=== PATIENT | female | born 1975 | race Caucasian/White ===

== ENCOUNTER 2018-02-19 11:20 | Outpatient (REF) | payer BC, SELFPAY ==
[2018-02-19 13:31] LABS: Bilirubin Negative (Negative); Blood Small (Negative); Clarity Clear; Glucose Negative (Negative); Ketones Negative (Negative); Leukocyte Esterase Negative (Negative); Nitrite Negative (Negative); Urobilinogen 0.2 EU/dL (Up TO 0.2)
[2018-02-19 13:48] LABS: Bacteria Moderate HPF (Negative); C & S Indicated? C&S Done As Ordered; Casts Negative LPF (Negative); Crystals Negative HPF (Negative); Epithelial Cells Few HPF (Negative); Mucus Moderate (Negative); RBC 0-2 (0-2); WBC 0-2 HPF (0-5)
== END 2018-02-19 11:21 ==
LOC: LBN 11:20
PROVIDERS: PCP Nurse Practitioner Family; Visit Provider Obstetrics & Gynecology
DX: R31.0 Gross hematuria (principal)
CPT/HCPCS: 81003; 81015; 87086

== ENCOUNTER 2018-03-07 02:56 | Outpatient (CLI) | payer BC, SELFPAY ==
--- NOTE | 2018-03-07 15:13 | DI.REPORT_ITS ---
SYMPTOMS/DIAGNOSIS: MICROSCOPIC HEMATURIA, R31.29, RLQ ABD PAIN, R10.31 RENAL ULTRASOUND: The kidneys are normal in size and shape and there is no evidence of a renal mass, hydronephrosis or nephrolithiasis. Pre and post void urinary bladder volume measurements are 254 cc's and 0 cc's respectively. The bladder appears intact. CONCLUSION: Negative renal ultrasound.
== END 2018-03-07 02:57 ==
PROVIDERS: PCP Nurse Practitioner Family; Visit Provider Obstetrics & Gynecology
DX: R10.31 Right lower quadrant pain (principal); R31.29 Other microscopic hematuria
CPT/HCPCS: 76770

== ENCOUNTER 2020-02-01 00:20 | Emergency (ER) | payer BC, SELFPAY ==
[2020-02-01 00:25] VITALS: BP 114/76; PULSE 120; RESP 30; TEMP 36.2; O2SAT 99
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
--- NOTE | 2020-02-01 00:58 | NUR.NOTE ---
Nursing Note: sent copy of referal to wound care to cm to make appt
[2020-02-01] MEDS: Silver sulfaDIAZINE 1% 25 GM TUBE TP (01:01)
[2020-02-01 01:09] VITALS: BP 114/76; TEMP 36.2; O2SAT 99
--- NOTE | 2020-02-01 09:33 | CMPROGNOTE_ITS ---
- If Service Date Differs Date of service: 02/01/20 Time of Service: 09:33 Care Management Progress Note At the request of ED provider, BUSHRA coordinates referral to [facility] (fax [phone]). BUSHRA also contacts Ana Maria to provide her with contact information for the [facility] (tel. [phone]) and to advise her a referral was made and to expect a call from them.
--- NOTE | 2020-02-01 09:33 | PDOC.ERCMPRO ---
- If Service Date Differs Date of service: 02/01/20 Time of Service: 09:33 Care Management Progress Note At the request of ED provider, BUSHRA coordinates referral to [facility] (fax [phone]). BUSHRA also contacts Ana Maria to provide her with contact information for the [facility] (tel. [phone]) and to advise her a referral was made and to expect a call from them.
== END 2020-02-01 01:20 | disposition home or self-care (01) ==
PROVIDERS: Emergency Provider Student in an Organized Health Care Education/Training Program; PCP Nurse Practitioner Family
DX: T22.212A Burn of second degree of left forearm, initial encounter (principal); T24.212A Burn of second degree of left thigh, initial encounter; X03.8XXA Other exposure to controlled fire, not in building or structure, initial encounter
CPT/HCPCS: 16020

== ENCOUNTER 2020-12-14 18:17 | Emergency (ER) | payer BC, SELFPAY ==
[2020-12-14 18:32] VITALS: BP 124/70; PULSE 86; RESP 20; TEMP 36.8; O2SAT 97
--- NOTE | 2020-12-14 18:51 | ED.GENADUL_ITS ---
Discharge Plan Disposition Patient Disposition: HOME Condition: Stable Discharge Details Clinical Impression: Dog bite Primary Care Provider: Ml Brown ED Provider: Jody Boyer Home Meds and New Rx's Prescriptions: New amoxicillin-pot clavulanate [Augmentin] 875-125 mg tablet 1 tab PO BID 10 Days Qty: 20 RF: 0 Continued fluoxetine [Prozac] 20 MG capsule 40 mg PO DAILY RF: 0 lamotrigine 200 mg Tablet 200 mg PO DAILY RF: 0 lisinopril 20 mg tablet 20 mg PO DAILY RF: 0 aripiprazole [Abilify] 2 mg Tablet 2 mg PO QHS RF: 0 Discharge Instructions Instructions: Animal Bite (ED) Additional Instructions: Drink plenty of fluids and get plenty of rest. Rest, ice, and elevate the affected area as much as possible. Keep your right leg elevated as much as possible Your prescription has been sent electronically to your pharmacy. Call the pharmacy to make sure your prescription is ready before pickup. Take the prescription as directed. Follow-up with your primary care doctor within the next few days for re- evaluation of your wounds. Return to the emergency department with any worsening or new concerning symptoms such as fever, worsening pain, redness or swelling. Discharge Data Discharge Physician: Jody Boyer Medical Decision Making 45-year-old female presents with dog bite to the right ankle sustained by her sister's dog 2 days ago now presenting with worsening swelling and some increasing pain. Denies fever. Started a new job yesterday and has been on her feet for more than 10 hours. She appears comfortable and nontoxic. She is hemodynamically stable. There are total of 3 dog bites noted to the right ankle. There is mild to moderate edema throughout and mild erythema on the lateral aspect. Wounds are not gaping and they are fairly small. There is no crepitus or abscess. She has neurovascular intact. Discussed with patient my concern for rabies if the dog has not been acting appropriately, the bite was unprovoked, and she is unsure of the dog's i mmunization status. Patient declined rabies vaccination. The risks of or disability associated with rabies explained and patient fully understands and is still declining. I do not see indication for labs or IV antibiotics at this time. Patient was given a dose of Augmentin p.o. here and referred for x-ray which was negative for acute fracture or foreign body. Will place skin markings around area of erythema. Her wounds were covered with bacitracin and dressed. Patient was advised on the importance of avoiding weightbearing or walking over the next few days. She states she cannot afford to miss work at this time and plans to go tomorrow. It was discussed that as she already has an area of erythema, this could become significantly worse leading to the need for IV antibiotics or admission. Patient understands these risk and states she needs to work. She was advised to rest her right leg is much as possible. She was given a bottle of Augmentin to go as well as prescription sent electronically to her pharmacy. She was advised to follow-up with her primary care doctor within a few days for reevaluation. Advised to return here immediately with any worsening symptoms Medical Records Medical records reviewed: Yes I reviewed the patient's medical records. Imaging Data Radiologic Study: Radiologist's impression: XR Right Ankle Exam date and time: 12/14/2020 6:52 PM Age: 45 years old Clinical indication: Injury or trauma; Other: Dog bite; Puncture; Ankle; Right; Foreign body involvement not specified TECHNIQUE: Imaging protocol: XR Right ankle. Views: 3 or more views. COMPARISON: No relevant prior studies available. FINDINGS: Bones/joints: No acute fracture. Soft tissues: No radiopaque foreign body. Soft tissue edema. Other findings: Old avulsion inferior to the lateral malleolus. IMPRESSION: Old avulsion inferior to the lateral malleolus. No acute fracture. No radiopaque foreign body. Soft tissue edema. HPI General Mode of arrival: ambulatory . Date/Time Provider Initiated Documentation: 12/14/20 18:36 . Limitations to Documentation: no limitations . Information obtained by: patient . HPI Narrative: Patient is a 45-year-old female presents to the ED with complaint of dog bite to her right ankle sustained 2 days ago. Patient states she went to her sister's house 2 days ago and her dog bit her right ankle. She states the attack was unprovoked and she was told that the dog had not been acting appropriately. She states she is unsure of the dog's vaccination status but is calling her sister now. She states she started a job and was standing on her feet all day at work for 10 hours yesterday and today. She states mainly the swelling is worse today and the pain is mildly worse. She denies any known fever. Related Data Home Medications Medication Instructions Recorded Confirmed fluoxetine [Prozac] 40 mg PO DAILY tab-cap 09/27/16 12/14/20 aripiprazole [Abilify] 2 mg PO QHS 02/01/20 12/14/20 lamotrigine 200 mg PO DAILY 02/01/20 12/14/20 lisinopril 20 mg PO DAILY 02/01/20 12/14/20 amoxicillin-pot clavulanate 1 tab PO BID 10 Days #20 tab 12/14/20 [Augmentin] Previous Rx's Medication Instructions Recorded amoxicillin-pot clavulanate 1 tab PO BID 10 Days #20 tab 12/14/20 [Augmentin] Allergies Allergy/AdvReac Type Severity Reaction Status Date / Time codeine AdvReac Intermediate Vomitting Unverified 12/14/20 18:34 General Stated Complaint: AnimalBite EVARISTO: 3 Review of Systems All systems reviewed & are unremarkable except as noted in HPI and below Constitutional Constitutional: Reports as per HPI, Denies chills and Denies fever(s) Eyes Eyes: Denies blurry vision ENT Ears, Nose, Mouth, and Throat: Denies dizziness, Denies sore throat and Denies t hroat swelling Cardiovascular Cardiovascular: Denies chest pain and Denies dyspnea Respiratory Respiratory: Denies cough and Denies dyspnea Gastrointestinal Gastrointestinal: Denies abdominal pain, Denies diarrhea and Denies vomiting Genitourinary Genitourinary: Denies hematuria and Denies dysuria Musculoskeletal Musculoskeletal: Denies back pain and Denies numbness Integumentary/Breasts Skin/Breast: Reports lesions and Denies rash Neurologic Neurologic: Denies dizziness, Denies localized weakness and Denies numbness Allergic/Immunologic Allergic/Immunologic: Denies throat swelling [facility] Medical History (Updated 12/14/20 @ 19:45 by Jody Boyer DO) Cyst of breast, left, solitary Surgical History Endometrial Ablation Social History Smoking/Tobacco Use Status: Current every day Smoking risk assessment performed?: Yes Alcohol Intake: current Alcohol Intake frequency: a few times a month Drug use: Never Substance use type: does not use Do you feel safe at home: Yes Do you feel safe in your relationship?: Yes Exam Const General: cooperative, healthy appearing and no acute distress HENMT Head: normal to inspection Face and sinus: normal facial exam Eyes General: appearance normal, both eyes and all related structures EOM: EOM intact bilaterally Neck Neck: normal visual inspection and No submandibular swelling Lymphatic: no lymphadenopathy noted Chest Chest: normal inspection of the chest and no tenderness Resp Effort & Inspection: normal respiratory effort and able to speak in complete sentences Cardio Rate: regular rate Skin General skin exam: no rashes or lesions noted Neuro General: patient alert, patient awake and patient oriented x3 Cognition: normal cognition Speech: speech normal Motor: muscle tone normal throughout Sensory Exam: no sensory deficits noted Extrem Ankle/foot/toe images: 1. 1 x 3 mm open wound to superior to right lateral malleolus 2. 3 x 3mm open wound to superior medial malleolus 3. 3 x 3mm open wound to inferior medial malleolus 4. Erythema Other: Edema of right ankle medial and lateral. There is no crepitus, induration or fluctuance. Right DP/PT pulses intact. Motor/sensory grossly intact. Psych Appearance: grossly normal Mental Status: mental status grossly normal Speech and Movement: speech and movement normal Affect: normal affect Course Vital Signs Vital signs: Vital Signs Temperature 98.2 F 12/14/20 18:32 Pulse 86 12/14/20 18:32 Respiratory Rate 20 12/14/20 18:32 Blood Pressure 124/70 12/14/20 18:32 Pulse Oximetry 97 12/14/20 18:32 Temperature 98.2 F 12/14/20 18:32 Temperature Source Temporal Artery Scan 12/14/20 18:32 Pulse 86 12/14/20 18:32 Respiratory Rate 20 12/14/20 18:32 Respiratory Effort Non-Labored 12/14/20 18:36 Blood Pressure 124/70 12/14/20 18:32 Blood Pressure Position Sitting 12/14/20 18:32 Pulse Oximetry 97 12/14/20 18:32 Oxygen Delivery Method Room Air 12/14/20 18:32 Oxygen Flow Rate 0 12/14/20 18:32 Pain Level 5 12/14/20 18:32
[2020-12-14] MEDS: Amoxicillin 875/Clav. 125 TAB PO (19:06)
--- NOTE | 2020-12-14 19:09 | DI.RAD_ITS ---
Exam(s) XR ANKLE RT COMPLETE EXAM: XR ANKLE RT COMPLETE CLINICAL HISTORY: bit by dog R ankle, r/o fb/fx. TECHNIQUE: 2D digital imaging was performed. COMPARISON: No exams were available for comparison FINDINGS: BONES: No acute fracture is present. No bony destructive lesion is seen. Well corticated density at the inferior aspect of the lateral malleolus consistent with a prior avulsion injury. JOINTS: The ankle mortise is normally aligned. SOFT TISSUE: No radiopaque foreign bodies in the soft tissues. Mild soft tissue swelling about the a nkle particularly laterally. IMPRESSION: 1. No acute fracture or dislocation. 2. Soft tissue swelling about the ankle. 3. No radiopaque foreign body. DATA REPOSITORY: RADIATION DOSE DELIVERED:
--- NOTE | 2020-12-14 19:17 | DI.VRAD_ITS ---
PROCEDURE INFORMATION: Exam: XR Right Ankle Exam date and time: 12/14/2020 6:52 PM Age: 45 years old Clinical indication: Injury or trauma; Other: Dog bite; Puncture; Ankle; Right; Foreign body involvement not specified TECHNIQUE: Imaging protocol: XR Right ankle. Views: 3 or more views. COMPARISON: No relevant prior studies available. FINDINGS: Bones/joints: No acute fracture. Soft tissues: No radiopaque foreign body. Soft tissue edema. Other findings: Old avulsion inferior to the lateral malleolus. IMPRESSION: Old avulsion inferior to the lateral malleolus. No acute fracture. No radiopaque foreign body. Soft tissue edema. Dictated and Authenticated by: Virgil Betts MD. Ordering:OTONIEL Vera MD
[2020-12-14] MEDS: Amox. 875/Clav. 125, 2 TABS/BTL 1 TAB PO (19:57)
[2020-12-14 20:03] VITALS: BP 124/70; PULSE 86; RESP 20; TEMP 36.8; O2SAT 97
== END 2020-12-14 20:02 | disposition home or self-care (01) ==
PROVIDERS: Emergency Provider Physician Assistant; PCP Nurse Practitioner Family
DX: S91.051A Open bite, right ankle, initial encounter (principal); W54.0XXA Bitten by dog, initial encounter
CPT/HCPCS: 99283; 73610

== ENCOUNTER 2022-09-27 16:05 | Emergency (ER) | payer BC, SELFPAY ==
[2022-09-27 16:26] VITALS: BP 146/129; PULSE 80; RESP 20; TEMP 36.6; O2SAT 98
--- NOTE | 2022-09-27 17:30 | DI.CT_ITS ---
Exam(s) CT HEAD WO EXAM: CT HEAD WO CLINICAL HISTORY: slurred speech. TECHNIQUE: Imaging Protocol: Axial computed tomography images with coronal and sagittal reformatted images were created and reviewed COMPARISON: CT HEAD WITHOUT CONTRAST from 01/07/2018 FINDINGS: Ventricles and Extra axial spaces: Normal in size and morphology for the patient's age. Hemorrhage: None. Cerebral parenchyma: Normal. Midline shift: None. Brainstem/Cerebellum: Normal. Calvarium: Normal. Visualized Paranasal sinuses/Mastoids: Clear. Soft Tissues: Unremarkable. IMPRESSION: No acute intracranial process. RADIATION DOSE DELIVERED: 676.67mGy.cm Total DLP DATA REPOSITORY: All CT scans at this facility are submitted to the National Radiology Data Registry (NRDR) Dose Index Registry (DIR) with the [employer] ([employer]). RADIATION OPTIMIZATION: All CT scans at this facility use at least one of these dose optimization te chniques: automated exposure control; mA and/or kV adjustment per patient size (includes targeted exa ms where dose is matched to clinical indication); or iterative reconstruction.
[2022-09-27 17:31] VITALS: RESP 18
[2022-09-27 17:35] LABS: Abs Immature Grans 0.03 10^3/uL (0.0-0.06); Absolute Basophil Count 0.04 10^3/uL (0.0-0.2); Absolute Eosinophil Count 0.22 10^3/uL (0.0-0.7); Absolute Lymphocyte Count 1.91 10^3/uL (1.2-3.4); Absolute Monocyte Count 0.64 10^3/uL (0.1-0.8); Absolute Neutrophil Count 5.25 10^3/uL (1.2-6.7); Basophils % 0.5; Eosinophils % 2.7; HCT 33.5 % (36.0-46.0); HGB 11.4 g/dL (11.2-15.7); Immature Grans % 0.4; Lymphocytes % 23.6; MCH 32.5 pg (27.0-33.0); MCV 95 fL (80-95); MPV 8.7 fL (8.0-11.0); Monocytes % 7.9; Neutrophils % 64.9; Platelet Count 336 10^3/uL (130-400); RBC 3.51 10^6/uL (3.93-5.22); RDW 11.9 % (11.7-14.6); RDW-SD 41.5 fL; WBC 8.09 10^3/uL (4.4-10.8)
[2022-09-27 17:55] LABS: Bilirubin Negative (Negative); Blood Negative (Negative); Clarity Clear (Clear); Glucose Negative (Negative); Ketones Negative (Negative); Leukocyte Esterase Negative (Negative); Nitrite Negative (Negative); Specific Gravity <= 1.005 (1.005-1.025); Urobilinogen 0.2 mg/dL (Up to 0.2); pH 5.5 (5-8)
[2022-09-27 18:25] LABS: ALT 22 U/L (14-59); AST 17 U/L (15-37); Albumin 4.1 g/dL (3.4-5.0); Alkaline Phosphatase 77 U/L (46-116); Anion Gap 6.8 mmol/L (3-11); BUN 11 mg/dL (7-18); Bilirubin, Total 0.2 mg/dL (0.2-1.0); CO2 28.2 mmol/L (21.0-32.0); CREATININE 0.4 mg/dL (0.55-1.02); Calcium 8.5 mg/dL (8.5-10.1); Chloride 98 mmol/L (98-107); ETHANOL BLOOD 321.8 mg/dL (<10); Estimated GFR 122.01 (mL/min/1.73m2); Glucose 88 mg/dL (74-106); Potassium 4.3 mmol/L (3.5-5.1); Sodium 133 mmol/L (136-145); Total Protein 6.9 g/dL (6.4-8.2)
[2022-09-27 18:26] LABS: *AMPHETAMINES SCREEN URINE Negative (Negative); *BARBITURATES SCREEN URINE Negative (Negative); *BENZODIAZEPINES SCREEN URINE Negative (Negative); Cannabinoids THC Negative (Negative); Cocaine Screen,Urine Negative (Negative); METHADONE URINE SCREEN Negative (Negative); OPIATES URINE SCREEN Negative (Negative)
[2022-09-27 18:30] LABS: Tricyclic Antidepressants Negative (Negative)
[2022-09-27 18:30] LABS: Ammonia < 10 umol/L (11-32)
[2022-09-27 18:42] LABS: Magnesium 1.9 mg/dL (1.8-2.4); TSH (W/Ref FT4) 1.54 uIU/mL (0.36-3.74)
--- NOTE | 2022-09-27 18:56 | DI.VRAD_ITS ---
PROCEDURE INFORMATION: Exam: CT Head Without Contrast Exam date and time: 09/27/2022 6:36 PM Age: 47 years old Clinical indication: Slurred speech TECHNIQUE: Imaging protocol: Computed tomography of the head without contrast. Radiation optimization: All CT scans at this facility use at least one of these dose optimization techniques: automated exposure control; mA and/or kV adjustment per patient size (includes targeted exams where dose is matched to clinical indication); or iterative reconstruction. COMPARISON: CT HEAD WITHOUT CONTRAST 01/07/2018 10:33 AM FINDINGS: Brain: There is no acute intracranial hemorrhage, mass effect or midline shift. There is no large acute territorial cerebral infarct. Cerebral ventricles: No ventriculomegaly. Paranasal sinuses: Visualized sinuses are unremarkable. No fluid levels. Mastoid air cells: Visualized mastoid air cells are well aerated. Bones/joints: No acute fracture. Old nasal bone fracture noted on the left. Soft tissues: Unremarkable. IMPRESSION: No acute intracranial hemorrhage, mass effect or midline shift. If there is further clinical concern for acute infarct, MRI may be considered. Dictated and Authenticated by: Airam Dean MD. Ordering:PATRICIA Arcos MD
--- NOTE | 2022-09-27 19:07 | W.ED.GENAD ---
Discharge Plan Disposition Patient Disposition: Home Discharge Details Clinical Impression: Blood alcohol, elevated, Slurring of speech Primary Care Provider: Ml Brown ED Provider: Josselyn Harrison Home Meds and New Rx's Prescriptions: New thiamine HCl (vitamin B1) 250 mg tablet 250 mg PO DAILY Qty: 30 0RF Continued lamotrigine 200 mg Tablet 200 mg PO DAILY lisinopril 20 mg tablet 20 mg PO DAILY aripiprazole [Abilify] 2 mg Tablet 2 mg PO QHS clonidine HCl 0.1 mg tablet 0.1 mg PO DAILY Patient Comments: take 1 tablet by mouth once daily prazosin 1 mg capsule 1 mg PO HS levothyroxine 50 mcg tablet 50 mcg PO QAM Patient Comments: take 1 tablet by mouth every morning ON AN EMPTY STOMACH duloxetine 20 mg Capsule, Delayed Rel Sprinkle 20 mg PO BID Discharge Instructions Additional Instructions: Please take thiamine as prescribed Some of your tests are still pending, we will notify you if they are abnormal I recommend taking thiamine liters daily Please follow-up with your doctor Your labs are reassuring but your alcohol level is quite elevated, if you do consume alcohol and need like to stop, I recommend cutting down by 1 drink daily and do not stop alcohol consumption abruptly as it can make you very sick If there is no alcohol consumption, you will need close outpatient reassessment with your doctor as I am uncertain as to why your alcohol level is elevated, the most common causes from consuming actual alcohol Referrals: Ml Brown [Primary Care Provider] - Discharge Data Discharge Date/Time-TO BE ENTERED AT DEPARTURE: 09/27/22 19:19 Medical Decision Making This 47-year-old female presents with report of slurred speech and difficulty ambulating She adamantly declines any alcohol consumption per and patient Curiously her blood alcohol is above 300 which is likely contributing to her symptoms We did consider other pathologies, however she has been thoroughly assessed from these in the past and I suspect that she has had alcohol intake today although she is still declining consuming any alcoholic beverages She is fully alert and oriented, she is ambulatory now with steady gait Her speech is clear Her CT head does not show evidence of acute abnormality and the rest of her labs are within normal limits including an ammonia level Repeat blood pressure 140/89 at time of discharge home Encouraged to follow-up with primary care physician acutely in the outpatient setting Long discussion regarding tapering off alcohol although patient is still refusing to admit alcohol consumption No clinical signs or symptoms consistent with TIA or CVA Patient asked to step outside room with a discussion regarding her alcohol level, so this was not formally discussed and found patient's significant other Medical Records Medical records reviewed: Yes I reviewed the patient's medical records. Lab Data Lab results reviewed: Yes I reviewed the patient's lab results. HPI General Date/Time Provider Initiated Documentation: 09/27/22 16:33. HPI Narrative: This 47-year-old female with history of alcoholism presents with report of slurred speech after 2:00 consistent with patient's presentation for the past 10 years. She presents today as is concerned that this is been going on for an extended period of time. She reportedly has had numerous assessments in the past. 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 She adamantly denies any alcohol consumption although does have a history of alcoholism and states she used to drink 12 beers daily. She adamantly denies any current alcohol consumption. Has been states that every day when she gets home from work she has episodes of slurred speech and difficulty walking and appears drunk her . She had a fall recently unrelated to these events. She was evaluated at another hospital per patient. Related Data Home Medications Medication Instructions Recorded Confirmed aripiprazole 2 mg tablet (Abilify) 2 mg PO QHS 02/01/20 09/27/22 lamotrigine 200 mg tablet 200 mg PO DAILY 02/01/20 09/27/22 lisinopril 20 mg tablet 20 mg PO DAILY 02/01/20 09/27/22 clonidine HCl 0.1 mg tablet 0.1 mg PO DAILY 09/27/22 09/27/22 duloxetine 20 mg capsule,delayed 20 mg PO BID 09/27/22 09/27/22 release sprinkle levothyroxine 50 mcg tablet 50 mcg PO QAM 09/27/22 09/27/22 prazosin 1 mg capsule 1 mg PO HS 09/27/22 09/27/22 thiamine HCl (vitamin B1) 250 mg 250 mg PO DAILY #30 tabs 09/27/22 tablet Previous Rx's Medication Instructions Recorded thiamine HCl (vitamin B1) 250 mg 250 mg PO DAILY #30 tabs 09/27/22 tablet Allergies Allergy/AdvReac Type Severity Reaction Status Date / Time codeine AdvReac Intermediate Vomitting Unverified 09/27/22 17:33 General Stated Complaint: [facility] EVARISTO: 3 PFSH All Active Problems (Updated 09/27/22 @ 19:12 by YEYO Palmer) Dog bite (Acute) Blood alcohol, elevated (Acute) Slurring of speech (Acute) Medical History (Updated 09/27/22 @ 19:12 by YEYO Palmer) Cyst of breast, left, solitary Surgical History Endometrial Ablation Social History Smoking/Tobacco Use Status: Current every day Tobacco Type: cigarettes Smoking risk assessment performed?: Yes Alcohol Intake: current Alcohol Intake frequency: a few times a month Alcohol type: beer Drug use: Occasionally Substance use type: marijuana Do you feel safe at home: Yes Do you feel safe in your relationship?: Yes Exam Narrative Exam Narrative: Ms. 47-year-old female presents alert and oriented with slightly slurred speech, nonfocal neurological exam, ambulatory with steady gait, alert and oriented x4, no visible signs of head trauma, pupils equal round reactive to light and accommodation. Denies any Const General: cooperative and comfortable HENMT Other: moist mucous membranes Eyes Pupils: PERRL Neck Other: no midline tenderness Resp Effort & Inspection: normal respiratory effort Auscultation: clear to auscultation bilaterally Cardio Rate: regular rate Rhythm: regular rhythm GI Inspection: normal to inspection Skin General skin exam: no rashes or lesions noted Neuro General: patient alert and patient oriented x3 Cranial Nerves: CN's II-XI intact bilaterally and tongue midline Cognition: normal cognition Speech: speech normal Gait: normal gait Motor: strength 5/5 throughout and no pronator drift Sensory Exam: no sensory deficits noted Course Vital Signs Vital signs: Vital Signs Temperature 36.6 C 09/27/22 16:26 Pulse 80 09/27/22 16:26 Respiratory Rate 20 09/27/22 16:26 Blood Pressure 146/129 H 09/27/22 16:26 Pulse Oximetry 98 09/27/22 16:26 Temperature 36.6 C 09/27/22 16:26 Pulse 80 09/27/22 16:26 Respiratory Rate 18 09/27/22 17:31 Respiratory Effort Normal, Non-Labored 09/27/22 17:31 Respiratory Depth Normal 09/27/22 17:31 Respiratory Pattern Normal 09/27/22 17:31 Blood Pressure 146/129 H 09/27/22 16:26 Blood Pressure Position Sitting 09/27/22 16:26 Pulse Oximetry 98 09/27/22 16:26 Oxygen Delivery Method Room Air 09/27/22 16:26 Oxygen Flow Rate 0 09/27/22 16:26 Pain Level 0 09/27/22 16:26 Lab/Test Results Lab/Test Results: Laboratory Tests Range/Units 09/27/22 09/27/22 09/27/22 17:17 17:17 17:45 WBC (4.4-10.8) 10^3/uL 8.09 RBC (3.93-5.22) 10^6/uL 3.51 L Hgb (11.2-15.7) g/dL 11.4 Hct (36.0-46.0) % 33.5 L MCV (80-95) fL 95 MCH (27.0-33.0) pg 32.5 MCHC (32.0-36.0) % 34.0 RDW (11.7-14.6) % 11.9 Plt Count (130-400) 10^3/uL 336 MPV (8.0-11.0) fL 8.7 Immature Gran % 0.4 Neutrophils % 64.9 Lymphocytes % 23.6 Monocytes % 7.9 Eosinophils % 2.7 Basophils % 0.5 Nucleated RBC % (0.0-0.3) % 0.0 Absolute Neutrophils (1.2-6.7) 10^3/uL 5.25 Absolute Lymphocytes (1.2-3.4) 10^3/uL 1.91 Absolute Monocytes (0.1-0.8) 10^3/uL 0.64 Absolute Eosinophils (0.0-0.7) 10^3/uL 0.22 Absolute Basophils (0.0-0.2) 10^3/uL 0.04 Sodium (136-145) mmol/L 133 L Potassium (3.5-5.1) mmol/L 4.3 Chloride (98-107) mmol/L 98 Carbon Dioxide (21.0-32.0) mmol/L 28.2 Anion Gap (3-11) mmol/L 6.8 BUN (7-18) mg/dL 11 Creatinine (0.55-1.02) mg/dL 0.4 L Est GFR (CKD-EPI 2020) (mL/min/1.73m2) 122.01 Glucose (74-106) mg/dL 88 Calcium (8.5-10.1) mg/dL 8.5 Magnesium (1.8-2.4) mg/dL Total Bilirubin (0.2-1.0) mg/dL 0.2 AST (15-37) U/L 17 ALT (14-59) U/L 22 Alkaline Phosphatase (46-116) U/L 77 Ammonia (11-32) umol/L Total Protein (6.4-8.2) g/dL 6.9 Albumin (3.4-5.0) g/dL 4.1 TSH (0.36-3.74) uIU/mL Urine Color (Yellow) Urine Clarity (Clear) Urine pH (5-8) Ur Specific [place] (1.005-1.025) Urine Protein (Negative) mg/dL Urine Ketones (Negative) mg/dL Urine Blood (Negative) Urine Nitrite (Negative) Urine Bilirubin (Negative) Urine Urobilinogen (Up to 0.2) mg/dL Ur Leukocyte Esterase (Negative) Urine Glucose (Negative) mg/dL Urine Opiates Screen (Negative) Negative Urine Methadone Screen (Negative) Negative Ur Barbiturates Screen (Negative) Negative Ur Tricyclics Screen (Negative) Negative Ur Amphetamines Screen (Negative) Negative U Benzodiazepines Scrn (Negative) Negative Urine Cocaine Screen (Negative) Negative Ur THC Screen (Negative) Negative Ethyl Alcohol (<10) mg/dL 321.8 H Range/Units 09/27/22 09/27/22 09/27/22 17:45 18:06 18:06 WBC (4.4-10.8) 10^3/uL RBC (3.93-5.22) 10^6/uL Hgb (11.2-15.7) g/dL Hct (36.0-46.0) % MCV (80-95) fL MCH (27.0-33.0) pg MCHC (32.0-36.0) % RDW (11.7-14.6) % Plt Count (130-400) 10^3/uL MPV (8.0-11.0) fL Immature Gran % Neutrophils % Lymphocytes % Monocytes % Eosinophils % Basophils % Nucleated RBC % (0.0-0.3) % Absolute Neutrophils (1.2-6.7) 10^3/uL Absolute Lymphocytes (1.2-3.4) 10^3/uL Absolute Monocytes (0.1-0.8) 10^3/uL Absolute Eosinophils (0.0-0.7) 10^3/uL Absolute Basophils (0.0-0.2) 10^3/uL Sodium (136-145) mmol/L Potassium (3.5-5.1) mmol/L Chloride (98-107) mmol/L Carbon Dioxide (21.0-32.0) mmol/L Anion Gap (3-11) mmol/L BUN (7-18) mg/dL Creatinine (0.55-1.02) mg/dL Est GFR (CKD-EPI 2020) (mL/min/1.73m2) Glucose (74-106) mg/dL Calcium (8.5-10.1) mg/dL Magnesium (1.8-2.4) mg/dL 1.9 Total Bilirubin (0.2-1.0) mg/dL AST (15-37) U/L ALT (14-59) U/L Alkaline Phosphatase (46-116) U/L Ammonia (11-32) umol/L < 10 L Total Protein (6.4-8.2) g/dL Albumin (3.4-5.0) g/dL TSH (0.36-3.74) uIU/mL 1.54 Urine Color (Yellow) Yellow Urine Clarity (Clear) Clear Urine pH (5-8) 5.5 Ur Specific [place] (1.005-1.025) <= 1.005 Urine Protein (Negative) mg/dL Negative Urine Ketones (Negative) mg/dL Negative Urine Blood (Negative) Negative Urine Nitrite (Negative) Negative Urine Bilirubin (Negative) Negative Urine Urobilinogen (Up to 0.2) mg/dL 0.2 Ur Leukocyte Esterase (Negative) Negative Urine Glucose (Negative) mg/dL Negative Urine Opiates Screen (Negative) Urine Methadone Screen (Negative) Ur Barbiturates Screen (Negative) Ur Tricyclics Screen (Negative) Ur Amphetamines Screen (Negative) U Benzodiazepines Scrn (Negative) Urine Cocaine Screen (Negative) Ur THC Screen (Negative) Ethyl Alcohol (<10) mg/dL PAWSS Have you Been Recently Intoxicated or Drunk Within the Last 30 days?: No Have you Ever Experienced Previous Episodes of Alcohol Withdrawal?: No Have you ever Experienced Withdrawal Seizures?: No Have you ever Experienced Delirium Tremens(DT)s?: No Have you ever undergone Alcohol Rehabilitation Treatment (i.e, inpt ot outpatient treatment programs)?: No Have you ever Experienced Blackouts?: No Have you ever Combined Alcohol with other Downers within the last 90 days?: No Have you ever Combined Alcohol with any other Substance of Abuse during the last 90 days?: No Positive Blood Alcohol level on Presentation? [PCS.BAL]: Yes Evidence of Increased Autonomic Activity (i.e. HR>120, tremor, sweating, agitation, nausea)?: Yes Result: 2
[2022-09-28 20:37] LABS: Prolactin 17.7 ng/mL (See Note)
[2022-09-28 20:41] LABS: Vitamin B12 259 pg/mL (211-911)
[2022-10-03 15:44] LABS: Thiamine (Vitamin B1), WB 107 nmol/L (70-180)
== END 2022-09-27 19:19 | disposition home or self-care (01) ==
PROVIDERS: Emergency Medicine; Emergency Provider Physician Assistant; PCP Nurse Practitioner Family
DX: R47.81 Slurred speech (principal); R78.0 Finding of alcohol in blood; Y90.8 Blood alcohol level of 240 mg/100 ml or more
CPT/HCPCS: 36415; 80053; 80175; 80307; 99284; 70450; 80320; 81003; 82140; 82607; 83735; 84146; 84425; 84443; 85025; 99282